=== PATIENT | male | born 1985 | race African-American/Black ===

== ENCOUNTER 2018-12-12 05:24 | Outpatient (CLI) | payer OTHER ==
[2018-12-12 07:14] LABS: MEAN CORPUSCULAR HEMOGLOBIN 29.4 pg (28.0-34.0)
[2018-12-12 07:16] LABS: BASOPHILS % 0.3 (0.0-1.5); EOSINOPHILS % 0.6 % (0.0-6.8); MONOCYTES % 3.4 % (0.0-11.0); NEUTROPHILS # 5.3 # k/uL (1.4-7.7)
== END 2018-12-12 05:26 ==
LOC: LAB 05:24
PROVIDERS: ATTEND General Practice
DX: R07.9 Chest pain, unspecified (principal)
CPT/HCPCS: 36415; 85025